=== PATIENT | male | born 1975 | race American Indian/Alaskan Native ===

== ENCOUNTER 2020-02-11 18:11 | Emergency (ER) | payer SELFPAY ==
[2020-02-11 19:57] VITALS: BP 107/68
--- NOTE | 2020-02-11 20:54 | Emergency Department Report ---
ED ENT HPI - General Chief complaint: Dental/Oral Stated complaint: DENTAL PAIN HOLE IN TOOTH Time Seen by Provider: 02/11/20 20:45 Source: patient Mode of arrival: Ambulatory Limitations: No Limitations - History of Present Illness MD complaint: tooth pain -: Gradual, week(s) Location: tooth # Severity: mild, moderate Quality: aching, sharp Consistency: constant Improves with: none Worsens with: eating, movement Context- Dental: history of dental caries Associated Symptoms: toothache - Related Data Previous Rx's Medication Instructions Recorded Last Taken Type Amoxicillin [Amoxicillin TAB] 875 mg PO BID #20 tablet 02/11/20 Unknown Rx Ketorolac [Toradol] 10 mg PO Q6H PRN #20 tablet 02/11/20 Unknown Rx Lidocaine Viscous 2% 15 ml MM Q4HR PRN #240 udc 02/11/20 Unknown Rx Allergies Allergy/AdvReac Type Severity Reaction Status Date / Time No Known Allergies Allergy Unverified 02/11/20 20:03 ED Dental HPI - General Chief complaint: Dental/Oral Stated complaint: DENTAL PAIN HOLE IN TOOTH Time Seen by Provider: 02/11/20 20:45 Source: patient Mode of arrival: Ambulatory Limitations: No Limitations - Related Data Previous Rx's Medication Instructions Recorded Last Taken Type Amoxicillin [Amoxicillin TAB] 875 mg PO BID #20 tablet 02/11/20 Unknown Rx Ketorolac [Toradol] 10 mg PO Q6H PRN #20 tablet 02/11/20 Unknown Rx Lidocaine Viscous 2% 15 ml MM Q4HR PRN #240 udc 02/11/20 Unknown Rx Allergies Allergy/AdvReac Type Severity Reaction Status Date / Time No Known Allergies Allergy Unverified 02/11/20 20:03 ED Review of Systems ROS: Stated complaint: DENTAL PAIN HOLE IN TOOTH Other details as noted in HPI Comment: All other systems reviewed and negative ED Past Medical Hx - Past Medical History Previous Medical History?: No - Surgical History Past Surgical History?: No - Social History Smoking Status: Never Smoker Substance Use Type: None - Medications Home Medications: Home Medications Medication Instructions Recorded Confirmed Last Taken Type Amoxicillin [Amoxicillin TAB] 875 mg PO BID #20 tablet 02/11/20 Unknown Rx Ketorolac [Toradol] 10 mg PO Q6H PRN #20 tablet 02/11/20 Unknown Rx Lidocaine Viscous 2% 15 ml MM Q4HR PRN #240 udc 02/11/20 Unknown Rx ED Physical Exam - General Limitations: No Limitations General appearance: alert, in no apparent distress - Head Head exam: Present: atraumatic, normocephalic - Eye Eye exam: Present: normal appearance, PERRL, EOMI Pupils: Present: normal accommodation - ENT ENT exam: Present: normal exam, normal orophraynx, mucous membranes moist, other (Several dental caries noted with symptoms of erythema swelling to the right upper molar region.) - Neck Neck exam: Present: normal inspection, full ROM. Absent: lymphadenopathy - Respiratory Respiratory exam: Present: normal lung sounds bilaterally. Absent: respiratory distress - Cardiovascular Cardiovascular Exam: Present: regular rate, normal rhythm. Absent: systolic murmur, diastolic murmur, rubs, gallop - GI/Abdominal GI/Abdominal exam: Present: soft, normal bowel sounds - Rectal Rectal exam: Present: deferred - Extremities Exam Extremities exam: Present: normal inspection - Back Exam Back exam: Present: normal inspection - Neurological Exam Neurological exam: Present: alert, oriented X3 - Psychiatric Psychiatric exam: Present: normal affect, normal mood - Skin Skin exam: Present: warm, dry, intact, normal color. Absent: rash ED Course Vital Signs 02/11/20 19:55 Temperature 98.3 F Pulse Rate 66 Respiratory 17 Rate Blood Pressure 107/68 O2 Sat by Pulse 97 Oximetry Critical care attestation.: If time is entered above; I have spent that time in minutes in the direct care of this critically ill patient, excluding procedure time. ED Disposition Clinical Impression: Infected dental caries Disposition: - TO HOME OR SELFCARE Is pt being admited?: No Does the pt Need Aspirin: No Condition: Stable Instructions: Dental Abscess, Preventive Dental Care, Adult Prescriptions: Amoxicillin [Amoxicillin TAB] 875 mg PO BID #20 tablet Lidocaine Viscous 2% 15 ml MM Q4HR PRN #240 udc PRN Reason: dental pain Ketorolac [Toradol] 10 mg PO Q6H PRN #20 tablet PRN Reason: Pain Referrals: PRIMARY CARE,MD [Primary Care Provider] - 3-5 Days [facility] [Outside] - 3-5 Days
== END 2020-02-11 21:30 | disposition home or self-care (01) ==
LOC: ED 18:11
DX: K02.9 Dental caries, unspecified (principal); Z79.2 Long term (current) use of antibiotics; Z79.899 Other long term (current) drug therapy
CPT/HCPCS: 99282

== ENCOUNTER 2020-11-12 16:37 | Emergency (ER) | payer SELFPAY ==
[2020-11-12 17:17] VITALS: BP 116/69
--- NOTE | 2020-11-12 18:15 | Event Note ---
ED Screening Note Date of service: 11/12/20 Time: 18:14 ED Screening Note: 45-year-old male presents to the ER today with complaints of right-sided chest pain. Onset 4 days ago. He described as intermittent pain, and he states that it occurs depending on certain movements that he does. He states that he has noticed that he gets short of breath but after talking for long period of time. He denies any associated cough, wheezing, nausea, vomiting diaphoresis. He denies any associate abdominal pain. He denies any calf pain or lower extremity swelling. He does smoke marijuana and tobacco but denies any other illicit drug use. He denies alcohol abuse. He denies any history of coronary artery disease and he denies any PE or DVT risk factors. This initial assessment/diagnostic orders/clinical plan/treatment(s) is/are subject to change based on patients health status, clinical progression and re- assessment by fellow clinical providers in the ED. Further treatment and workup at subsequent clinical providers discretion. Patient/guardian urged not to elope from the ED as their condition may be serious if not clinically assessed and managed. Initial orders include: Chest pain order set
--- NOTE | 2020-11-12 18:37 | XRay Report ---
XR chest routine 2V INDICATION / CLINICAL INFORMATION: Chest Pain. COMPARISON: None available. FINDINGS: SUPPORT DEVICES: None. HEART /PULMONARY VASCULATURE: No significant abnormality. LUNGS / PLEURA: No significant pulmonary or pleural abnormality. No pneumothorax. ADDITIONAL FINDINGS: No significant additional findings. IMPRESSION: 1. No acute findings. Signer Name: Tyrone Gregg MD Signed: 11/12/2020 6:32 PM Workstation Name: [id number]
[2020-11-12 18:56] LABS: Alanine Aminotransferase 10 units/L (7-56); Albumin 4.2 g/dL (3.9-5); BUN/Creatinine Ratio 19; Basophils % (Auto) 0.5 % (0.0-1.8); Blood Urea Nitrogen 15 mg/dL (9-20); Calcium 8.5 mg/dL (8.4-10.2); Eosinophils # (Auto) 0.1 K/mm3 (0.0-0.4); Eosinophils % (Auto) 1.1 % (0.0-4.3); Hemoglobin 12.4 gm/dl (11.8-15.2); Hemolysis Index 7; Lymphocytes # (Auto) 2.8 K/mm3 (1.2-5.4); Lymphocytes % (Auto) 45.3 % (13.4-35.0); Mean Corpuscular HGB Conc 34 % (32-34); Mean Corpuscular Volume 102 fl (84-94); Monocytes # (Auto) 0.5 K/mm3 (0.0-0.8); Monocytes % (Auto) 8.9 % (0.0-7.3); Platelet Count 173 K/mm3 (140-440); Red Blood Count 3.55 M/mm3 (3.65-5.03); Red Cell Distribution Width 12.4 % (13.2-15.2)
--- NOTE | 2020-11-12 20:41 | Emergency Department Report ---
ED Chest Pain HPI - General Chief Complaint: Chest Pain Stated Complaint: PAIN OF RT SIDE CHEST Source: patient Mode of arrival: Ambulatory Limitations: No Limitations - History of Present Illness Initial Comments: Patient is a 45-year-old -[place] male with a history of tobacco abuse who presents to the ED with complaint of acute onset persistent right-sided chest wall pain persistently and intermittently for the last 4 days. Patient states that he performs heavy lifting at work regularly and noticed that the pain in his right chest wall started after heavy lifting at work. Patient states that the pain is worse with active range of motion, heavy lifting or any movement. Patient denies fall, traumatic injury, nausea and vomiting, diaphoresis, cough, shortness of breath, fever, chills, headache, neck pain, numbness and tingling or weakness of upper extremities bilaterally, back pain, abdominal pain, sore throat or palpitations, dizziness and syncope MD Complaint: chest pain (Right sided chest wall pain), other (heavy lifting at work) -: Sudden, days(s) (4) Onset: during exertion, other (heavy lifting at work) Pain Location: right chest Pain Radiation: none Severity: moderate Severity scale (0 -10): 5 Quality: aching, sharp Consistency: intermittent Improves With: rest Worsens With: palpation, movement Context: other (heavy lifting) re: denies: nausea, vomting, diaphoresis, dyspnea, sense of impending doom Other Symptoms: denies: cough, fever, syncope, rash, acid taste in mouth, leg swelling, palpitations, burping Treatments Prior to Arrival: none - Related Data On Oral Contraceptives: No Previous Rx's Medication Instructions Recorded Last Taken Type Amoxicillin [Amoxicillin TAB] 875 mg PO BID #20 tablet 02/11/20 Unknown Rx Ketorolac [Toradol] 10 mg PO Q6H PRN #20 tablet 02/11/20 Unknown Rx Lidocaine Viscous 2% 15 ml MM Q4HR PRN #240 udc 02/11/20 Unknown Rx Naproxen 500 mg PO Q12H PRN #24 tablet 11/12/20 Unknown Rx Allergies Allergy/AdvReac Type Severity Reaction Status Date / Time No Known Allergies Allergy Unverified 02/11/20 20:03 Heart Score - HEART Score History: Slightly suspicious EKG: Normal Age: < 45 Risk factors: 1-2 risk factors Troponin: < normal limit HEART Score: 1 - EKG Read Time Time EKG Completed: 17:19 EKG Read Time: 17:21 - Critical Actions Critical Actions: 0-3 pts:0.9-1.7%risk of adverse cardiac event.Candidate for discharge ED Review of Systems ROS: Stated complaint: PAIN OF RT SIDE CHEST Other details as noted in HPI Constitutional: denies: chills, fever Eyes: denies: eye pain, eye discharge, vision change ENT: denies: ear pain, throat pain Respiratory: denies: cough, shortness of breath, SOB with exertion, SOB at rest, wheezing Cardiovascular: chest pain (right chest wall pain). denies: palpitations Endocrine: no symptoms reported Gastrointestinal: denies: abdominal pain, nausea, vomiting, diarrhea Genitourinary: denies: urgency, dysuria Musculoskeletal: denies: back pain, joint swelling, arthralgia Skin: denies: rash, lesions Neurological: denies: headache, weakness, paresthesias Psychiatric: denies: anxiety, depression Hematological/Lymphatic: denies: easy bleeding, easy bruising ED Past Medical Hx - Past Medical History Previous Medical History?: No - Surgical History Past Surgical History?: No - Social History Smoking Status: Never Smoker Substance Use Type: None - Medications Home Medications: Home Medications Medication Instructions Recorded Confirmed Last Taken Type Amoxicillin [Amoxicillin TAB] 875 mg PO BID #20 tablet 02/11/20 Unknown Rx Ketorolac [Toradol] 10 mg PO Q6H PRN #20 tablet 02/11/20 Unknown Rx Lidocaine Viscous 2% 15 ml MM Q4HR PRN #240 udc 02/11/20 Unknown Rx Naproxen 500 mg PO Q12H PRN #24 tablet 11/12/20 Unknown Rx ED Physical Exam - General Limitations: No Limitations General appearance: alert, in no apparent distress - Head Head exam: Present: atraumatic, normocephalic, normal inspection - Eye Eye exam: Present: normal appearance, PERRL, EOMI Pupils: Present: normal accommodation - ENT ENT exam: Present: normal exam, normal orophraynx, mucous membranes moist, TM's normal bilaterally, normal external ear exam - Neck Neck exam: Present: normal inspection, full ROM - Respiratory Respiratory exam: Present: normal lung sounds bilaterally, chest wall tenderness (Palpable reproducible right chest wall tenderness). Absent: respiratory distress, wheezes, rales, rhonchi, accessory muscle use, decreased breath sounds, prolonged expiratory - Cardiovascular Cardiovascular Exam: Present: regular rate, normal rhythm, normal heart sounds. Absent: systolic murmur, diastolic murmur, rubs, gallop - GI/Abdominal GI/Abdominal exam: Present: soft, normal bowel sounds. Absent: tenderness, guarding, rebound, hyperactive bowel sounds, hypoactive bowel sounds, organomegaly - Extremities Exam Extremities exam: Present: normal inspection, full ROM, normal capillary refill - Back Exam Back exam: Present: normal inspection, full ROM. Absent: tenderness, CVA tenderness (R), CVA tenderness (L), muscle spasm, paraspinal tenderness, vertebral tenderness - Neurological Exam Neurological exam: Present: alert, oriented X3, CN II-XII intact, normal gait, reflexes normal - Psychiatric Psychiatric exam: Present: normal affect, normal mood - Skin Skin exam: Present: warm, dry, intact, normal color. Absent: rash ED Course Vital Signs 11/12/20 17:15 Temperature 98.2 F Pulse Rate 76 Respiratory 18 Rate Blood Pressure 116/69 [Right] O2 Sat by Pulse 100 Oximetry ZACH score - Zach Score Age > 65: (0) No Aspirin use within the Past 7 Days: (0) No 3 or more CAD Risk Factors: (0) No 2 or more Angina events in past 24 hrs: (0) No Known CAD with more than 50% Stenosis: (0) No Elevated Cardiac Markers: (0) No ST Deviation Greater than 0.5mm: (0) No ZACH Score: 0 ED Medical Decision Making - Lab Data Result diagrams: 11/12/20 18:19 11/12/20 18:19 - EKG Data EKG shows normal: sinus rhythm Rate: normal - EKG Data Interpretation: normal EKG 11/12/20 20:42 EKG shows normal sinus rhythm with a ventricular rate of [address] or T wave abnormalities. - Radiology Data Radiology results: report reviewed, image reviewed [facility] [address] [place] [address] XRay Report Signed Patient: SANIA SAHU MR#: [id number] : 1975 Acct:[id number] Age/Sex: 45 / M ADM Date: 11/12/20 Loc: ED Attending Dr: Ordering Physician: DIXIE VIVAR Date of Service: 11/12/20 Procedure(s): XR chest routine 2V Accession Number(s): [id number] cc: DIXIE VIVAR Fluoro Time In Minutes: XR chest routine 2V INDICATION / CLINICAL INFORMATION: Chest Pain. COMPARISON: None available. FINDINGS: SUPPORT DEVICES: None. HEART /PULMONARY VASCULATURE: No significant abnormality. LUNGS / PLEURA: No significant pulmonary or pleural abnormality. No pneumothorax. ADDITIONAL FINDINGS: No significant additional findings. IMPRESSION: 1. No acute findings. Signer Name: Jason Gregg MD Signed: 11/12/2020 6:32 PM Workstation Name: [id number] Transcribed By: JS Dictated By: JASON GREGG MD Electronically Authenticated By: JASON GREGG MD Signed Date/Time: 11/12/201831 DD/ 31 TD/TT: - Medical Decision Making This is a 45-year-old -[place] male with a history of tobacco abuse who presents to the ED with complaint of acute onset persistent right-sided chest wall pain persistently and intermittently for the last 4 days. Patient states that he performs heavy lifting at work regularly and noticed that the pain in his right chest wall started after heavy lifting at work. Patient states that the pain is worse with active range of motion, heavy lifting or any movement. In the ED, patient is alert and oriented x3 and is not in any distress, and patient is hemodynamically stable. The EKG shows normal sinus rhythm with a ventricular rate of [address] or T wave abnormalities. Chest x-ray shows no acute cardiopulmonary abnormalities or pneumonitis. All lab test results were reviewed and are all nonactionable. Patient heart score is 1, and patient is PERC negative per Wells criteria. Based on the history and physical exam fi ndings, the patient symptoms are likely due to musculoskeletal muscle strain of the right chest wall or costochondritis following heavy lifting at work. Patient was therefore discharged home on anti-inflammatory pain medications and advised to follow-up with his primary care physician in 5 to 7 days for reevaluation or return to the ED immediately if symptoms get worse. - Differential Diagnosis Costochondritis; muscle strain; ACS; PE; pneumonia; Critical care attestation.: If time is entered above; I have spent that time in minutes in the direct care of this critically ill patient, excluding procedure time. ED Disposition Clinical Impression: Acute nonspecific chest pain with low risk of coronary artery disease, Acute costochondritis, Muscle strain of anterior chest wall Disposition: HOME / SELF CARE / HOMELESS Is pt being admited?: No Does the pt Need Aspirin: No Condition: Stable Instructions: Chest Pain (ED), Costochondritis, [id number], Muscle Strain, Ea sy-to-Read, Nonspecific Chest Pain, Adult, Oymy-rr-Uolj, Chest Wall Pain, Stdi-pg-Kajy Additional Instructions: All lab test results were reviewed and are all nonactionable. EKG shows normal sinus rhythm with a ventricular rate of [address] or T wave abnormalities. Chest x-ray shows no acute cardiopulmonary abnormalities or pneumonitis. Your symptoms are likely due to muscle strain of your chest wall following heavy lifting at work worsened with any movement or lifting. Therefore take pain medication as needed with food, drink plenty of fluids and follow-up with your primary care physician in 5 to 7 days for reevaluation or return to the ED immediately if symptoms get worse. Prescriptions: Naproxen 500 mg PO Q12H PRN #24 tablet PRN Reason: Pain , Severe (7-10) Referrals: [facility] [Provider Group] - 3-5 Days Time of Disposition: 20:44 Print Language: HEBREW
--- NOTE | 2020-11-15 10:53 | Electrocardiograph Report ---
[facility] Test Date: 2020-11-12 Test Time: 17:19:34 Pat Name: SANIA SAHU Department: Room: Gender: M Washing Machine Repairer: SHREYA : 1975 Requested By: DIXIE VIVAR Order Number: [id number] Reading MD: Deric Camacho Measurements Intervals [place] Rate: 67 P: -20 OH: 130 QRS: -2 QRSD: 89 T: -1 QT: 428 QTc: 454 Interpretive Statements Sinus rhythm Inferior infarct, old No previous ECG available for comparison Electronically Signed On 11-15-2020 10:53:30 EDT by Deric Camacho
== END 2020-11-12 21:57 | disposition home or self-care (01) ==
LOC: ED 16:37
DX: S29.011A Strain of muscle and tendon of front wall of thorax, initial encounter (principal); M94.0 Chondrocostal junction syndrome [Tietze]; R07.89 Other chest pain; Z79.899 Other long term (current) drug therapy; X50.0XXA Overexertion from strenuous movement or load, initial encounter; Y93.89 Activity, other specified; Y92.89 Other specified places as the place of occurrence of the external cause; Y99.0 Civilian activity done for income or pay
CPT/HCPCS: 36415; 71046; 80053; 83690; 84484; 85025; 93005

== ENCOUNTER 2020-12-01 07:08 | Emergency (ER) | payer SELFPAY ==
[2020-12-01 07:33] VITALS: BP 119/68
--- NOTE | 2020-12-01 08:34 | Emergency Department Report ---
ED ENT HPI - General Chief complaint: Dental/Oral Stated complaint: DENTAL PAIN Time Seen by Provider: 12/01/20 08:28 Source: patient Mode of arrival: Ambulatory Limitations: No Limitations - History of Present Illness Initial comments: 45-year-old asthmatic male with asthma department complaining of pain to the right upper dental region which been off and on for the past few months due to a dental fracture/eroded cavity which has been progressive worsening since the onset. He reports these the sensation of nerve exposure which he tried to correct by using some temporary filling but was unsuccessful in mitigating the pain. Gfem-sbo-[id number] medications has also not helped the pain relief so presents emerge department seeking further advice and treatment options. He is due to follow-up with the outside dentist for definitive treatment but needs some's medication help get him to his appointment time. Reports no nausea, no vomiting, no fever, chills, sweats, no odynophagia or dysphagia. No voice change MD complaint: tooth pain Location: tooth # Severity: mild, moderate Quality: dull Improves with: none Worsens with: none Associated Symptoms: toothache - Related Data Previous Rx's Medication Instructions Recorded Last Taken Type Amoxicillin [Amoxicillin TAB] 875 mg PO BID #20 tablet 02/11/20 Unknown Rx Ketorolac [Toradol] 10 mg PO Q6H PRN #20 tablet 02/11/20 Unknown Rx Lidocaine Viscous 2% 15 ml MM Q4HR PRN #240 udc 02/11/20 Unknown Rx Naproxen 500 mg PO Q12H PRN #24 tablet 11/12/20 Unknown Rx Amoxicillin [Amoxicillin TAB] 875 mg PO BID #20 tablet 12/01/20 Unknown Rx Chlorhexidine Mouthwash [Peridex] 15 ml MM BID #1 bottle 12/01/20 Unknown Rx Ketorolac [Toradol] 10 mg PO Q6H PRN #15 tablet 12/01/20 Unknown Rx Lidocaine Viscous 2% 5 ml MM Q3H PRN #120 udc 12/01/20 Unknown Rx Allergies Allergy/AdvReac Type Severity Reaction Status Date / Time No Known Allergies Allergy Unverified 02/11/20 20:03 ED Dental HPI - General Chief complaint: Dental/Oral Stated complaint: DENTAL PAIN Time Seen by Provider: 12/01/20 08:28 Source: patient Mode of arrival: Ambulatory Limitations: No Limitations - Related Data Previous Rx's Medication Instructions Recorded Last Taken Type Amoxicillin [Amoxicillin TAB] 875 mg PO BID #20 tablet 02/11/20 Unknown Rx Ketorolac [Toradol] 10 mg PO Q6H PRN #20 tablet 02/11/20 Unknown Rx Lidocaine Viscous 2% 15 ml MM Q4HR PRN #240 udc 02/11/20 Unknown Rx Naproxen 500 mg PO Q12H PRN #24 tablet 11/12/20 Unknown Rx Amoxicillin [Amoxicillin TAB] 875 mg PO BID #20 tablet 12/01/20 Unknown Rx Chlorhexidine Mouthwash [Peridex] 15 ml MM BID #1 bottle 12/01/20 Unknown Rx Ketorolac [Toradol] 10 mg PO Q6H PRN #15 tablet 12/01/20 Unknown Rx Lidocaine Viscous 2% 5 ml MM Q3H PRN #120 udc 12/01/20 Unknown Rx Allergies Allergy/AdvReac Type Severity Reaction Status Date / Time No Known Allergies Allergy Unverified 02/11/20 20:03 ED Review of Systems ROS: Stated complaint: DENTAL PAIN Other details as noted in HPI Comment: All other systems reviewed and negative ED Past Medical Hx - Past Medical History Previous Medical History?: No Additional medical history: denies - Surgical History Past Surgical History?: No Additional Surgical History: denies - Social History Smoking Status: Never Smoker Substance Use Type: None - Medications Home Medications: Home Medications Medication Instructions Recorded Confirmed Last Taken Type Amoxicillin [Amoxicillin TAB] 875 mg PO BID #20 tablet 02/11/20 Unknown Rx Ketorolac [Toradol] 10 mg PO Q6H PRN #20 tablet 02/11/20 Unknown Rx Lidocaine Viscous 2% 15 ml MM Q4HR PRN #240 udc 02/11/20 Unknown Rx Naproxen 500 mg PO Q12H PRN #24 tablet 11/12/20 Unknown Rx Amoxicillin [Amoxicillin TAB] 875 mg PO BID #20 tablet 12/01/20 Unknown Rx Chlorhexidine Mouthwash [Peridex] 15 ml MM BID #1 bottle 12/01/20 Unknown Rx Ketorolac [Toradol] 10 mg PO Q6H PRN #15 tablet 12/01/20 Unknown Rx Lidocaine Viscous 2% 5 ml MM Q3H PRN #120 udc 12/01/20 Unknown Rx ED Physical Exam - General Limitations: No Limitations General appearance: alert, in no apparent distress - Head Head exam: Present: atraumatic, normocephalic - Eye Eye exam: Present: normal appearance, PERRL, EOMI - ENT ENT exam: Present: mucous membranes moist, other (Significant erosion to the right upper dentition to the molar and premolar region. Some mild adjacent gingival erythema but no swelling is noted. Airway is patent tongue and uvula midline.) - Neck Neck exam: Present: normal inspection. Absent: lymphadenopathy, thyromegaly - Respiratory Respiratory exam: Present: normal lung sounds bilaterally. Absent: respiratory distress - Cardiovascular Cardiovascular Exam: Present: regular rate, normal rhythm. Absent: systolic murmur, diastolic murmur, rubs, gallop - GI/Abdominal GI/Abdominal exam: Present: soft, normal bowel sounds - Rectal Rectal exam: Present: deferred - Extremities Exam Extremities exam: Present: normal inspection - Back Exam Back exam: Present: normal inspection - Neurological Exam Neurological exam: Present: alert, oriented X3 - Psychiatric Psychiatric exam: Present: normal affect, normal mood - Skin Skin exam: Present: warm, dry, intact, normal color. Absent: rash ED Course Vital Signs 12/01/20 07:29 Temperature 97.6 F Pulse Rate 80 Respiratory 20 Rate Blood Pressure 119/68 [Right] O2 Sat by Pulse 100 Oximetry ED Medical Decision Making - Medical Decision Making 45-year-old male with recurrent dental history of asthma department for reemergence of an infected dental carry. Will be treated with antimicrobials and analgesics to help get him to his his dental form at the start which dentistry will also give him some inflammation to a couple other dental clinics which may be to see him soon Critical care attestation.: If time is entered above; I have spent that time in minutes in the direct care of this critically ill patient, excluding procedure time. ED Disposition Clinical Impression: Infected dental caries Disposition: HOME / SELF CARE / HOMELESS Is pt being admited?: No Does the pt Need Aspirin: No Condition: Stable Instructions: Preventive Dental Care, Adult, Dental Sealants, Dental Abscess, [id number] Prescriptions: Amoxicillin [Amoxicillin TAB] 875 mg PO BID #20 tablet Lidocaine Viscous 2% 5 ml MM Q3H PRN #120 udc PRN Reason: Pain, Moderate (4-6) Chlorhexidine Mouthwash [Peridex] 15 ml MM BID #1 bottle Ketorolac [Toradol] 10 mg PO Q6H PRN #15 tablet PRN Reason: Pain Referrals: [facility] [Outside] - 3-5 Days [facility] [Outside] - 3-5 Days
== END 2020-12-01 09:00 | disposition home or self-care (01) ==
LOC: ED 07:08
DX: K02.9 Dental caries, unspecified (principal); Z79.899 Other long term (current) drug therapy
CPT/HCPCS: 99282